=== PATIENT | male | born 1960 ===

== ENCOUNTER 2018-03-28 04:10 | Emergency (ER) | payer SELFPAY ==
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
[2018-03-28 04:27] VITALS: RESP 20
[2018-03-28 05:01] VITALS: BP 143/90; PULSE 100; TEMP 98.9; O2SAT 100
== END 2018-03-28 05:00 | disposition home or self-care (01) ==
LOC: C.ER 04:10
DX: S00.31XA Abrasion of nose, initial encounter (principal); Y08.89XA Assault by other specified means, initial encounter